=== PATIENT | female | born 1980 | race Caucasian/White ===

== ENCOUNTER → 2016-03-23 | Outpatient (CLI) | payer BC ==
--- NOTE | 2016-03-23 13:01 | US ---
EXAMINATION TYPE: US pelvic complete DATE OF EXAM: 03/23/2016 10:36 AM COMPARISON: NONE CLINICAL HISTORY: 35-year-old female R10.84 Abdominal pain,R10.2 Pelvic pain. Right lower quadrant pa in, history of ovarian cysts Date of LMP: 03/07/2016, TECHNIQUE: Multiple transabdominal sonographic images of the pelvis were obtained. FINDINGS: Uterus: Anteverted measuring 10.2 x 4.6 x 3.6 cm Endometrial Stripe: 9.5 mm. Right Ovary: 3.9 x 1.7 x 1.7 cm with a 1.7 cm dominant follicle or functional cyst. Left Ovary: 2.4 x 1.9 x 1.3 cm within normal limits. No evident adnexal abnormality or cul-de-sac free fluid. IMPRESSION: A 1.7 cm dominant follicle or functional cyst within the right ovary. Otherwise, no specific abnormal ity seen on transabdominal scanning.
--- NOTE | 2016-03-23 13:56 | US ---
EXAMINATION TYPE: US abdomen complete DATE OF EXAM: 03/23/2016 10:56 AM COMPARISON: NONE CLINICAL HISTORY: 35-year-old female R10.84 Abdominal pain,R10.2 Pelvic pain. RUQ pain. TECHNIQUE: Multiple sonographic images of the abdomen were obtained. FINDINGS: Liver Length: 15.1 cm Gallbladder Wall: 0.2 cm CBD: 0.3 cm Spleen: 11.0 cm Right Kidney: 9.7 x 4.9 x 5.1 cm Left Kidney: 9.2 x 4.6 x 4.2 cm Pancreas: wnl Liver: There is a small 8 mm hypoechoic area along the anterior left hepatic lobe with posterior thro ugh transmission. A complicated cyst or small hemangioma are both possible. Gallbladder: No abnormal gallbladder distention, wall thickening, pericholecystic fluid, or shadowin g calculi. Evidence for sonographic Banerjee's sign: neg CBD: wnl Spleen: wnl Right Kidney: No hydronephrosis. Left Kidney: No hydronephrosis. Upper IVC: Within normal limits. Abd Aorta: No aneurysm. IMPRESSION: 1. An 8 mm lesion along the anterior left hepatic lobe shows posterior through transmission and could represent a small complicated cyst or hemangioma. Consider a 6 month follow-up to reassess. 2. Otherwise, unremarkable sonographic examination of the abdomen.
== END | disposition home or self-care (01) ==
LOC: RADUSWWP 09:58
PROVIDERS: ATTEND Internal Medicine
DX: K76.89 Other specified diseases of liver (principal); R10.2 Pelvic and perineal pain
CPT/HCPCS: 76700; 76856

== ENCOUNTER 2016-07-19 10:22 | Day surgery (SDC) | payer BC ==
[2016-07-18 09:06] VITALS: BMI 25.7
[~2016-07-19 10:22] MED LIST: LIDOCAINE 1% 20 ML VIAL (10MG/ML) FOR IV START INTRADERMA PRN
[2016-07-19 10:59] VITALS: TEMP 97
--- NOTE | 2016-07-19 11:00 | P.GSHP ---
History of Present Illness H&P Date: 07/19/16 CHIEF COMPLAINT: GERD HISTORY OF PRESENT ILLNESS: The patient is a 35-year-old female who presents reports gastroesophageal reflux disease. Upper endoscopy was offered for further evaluation and management. PAST MEDICAL HISTORY: Please see list. PAST SURGICAL HISTORY: Please see list. MEDICATIONS: Please see list. ALLERGIES: Please see list. SOCIAL HISTORY: No illicit drug use FAMILY HISTORY: No reports of Crohn disease or ulcerative colitis. REVIEW OF ORGAN SYSTEMS: CONSTITUTIONAL: No reports of fevers or chills. GI: Denies any blood in stools or constipation. PHYSICAL EXAM: VITAL SIGNS: Stable GENERAL: Well-developed and pleasant in no acute distress. HEENT: No scleral icterus. Extraocular movements grossly intact. Moist buccal mucosa. NECK: Supple without lymphadenopathy. CHEST: Unlabored respirations. Equal bilateral excursions. CARDIOVASCULAR: Regular rate and rhythm. Distal 2+ pulses. ABDOMEN: Soft, nondistended. MUSCULOSKELETAL: No clubbing, cyanosis, or edema. ASSESSMENT: 1. Gastroesophageal reflux disease PLAN: 1. Recommend proceeding with an upper endoscopy Past Medical History Past Medical History: GERD/Reflux History of Any Multi-Drug Resistant Organisms: None Reported Past Surgical History: Section Past Anesthesia/Blood Transfusion Reactions: No Reported Reaction Past Psychological History: No Psychological Hx Reported Smoking Status: Never smoker Past Alcohol Use History: Occasional Past Drug Use History: None Reported - Past Family History Mother Family Medical History: No Reported History Medications and Allergies Home Medications Medication Instructions Recorded Confirmed Type Famotidine [Pepcid AC] 10 mg PO DAILY 07/18/16 07/18/16 History Allergies Allergy/AdvReac Type Severity Reaction Status Date / Time No Known Allergies Allergy Verified 07/18/16 08:55 Surgical - Exam Vital Signs Temp Pulse Resp BP Pulse Ox 97.0 F L 71 18 127/82 96 07/19/16 10:58 07/19/16 10:58 07/19/16 10:58 07/19/16 10:58 07/19/16 10:58
[2016-07-19] MEDS: LACTATED RINGERS 1,000 ML IV SCH ×2 (11:12→11:27)
[2016-07-19] MEDS ORDERED: PROPOFOL 10 MG/ML 20 ML VIAL IV ONE (11:31)
[2016-07-19] MEDS ORDERED: LIDOCAINE 1% INJ 10MG/ML (20 ML MDV) ONE (11:31)
[2016-07-19 11:55] VITALS: RESP 16
--- NOTE | 2016-07-19 11:59 | P.PCN ---
Date of Procedure: 07/19/16 Preoperative Diagnosis: Postoperative Diagnosis: Procedure(s) Performed: Implants: Indications for Procedure: Operative Findings: Description of Procedure: PREOPERATIVE DIAGNOSIS: Gastroesophageal reflux disease. Epigastric abdominal pain. POSTOPERATIVE DIAGNOSIS: Gastroesophageal reflux disease. Epigastric abdominal pain. Diaphragmatic hiatal hernia. Gastritis. OPERATION: Esophagogastroduodenoscopy with biopsies along antrum. SURGEON: Rose Caruso MD ANESTHESIA: MAC. INDICATIONS: The patient is a 35-year-old female who presents with a history of reflux disease. Benefits and risks of the procedure were described. Informed consent was obtained. DESCRIPTION: The patient was brought into the endoscopy suite and laid in the left lateral decubitus position. An Olympus gastroscope was passed along the posterior oropharynx down to the distal esophagus where the squamocolumnar junction was encountered at 35 cm from the incisors. The stomach was entered and minimal bile reflux was found. Additional findings are listed below. Biopsies with cold forceps were obtained of the antrum. The first through third portion of the duodenum was examined and unremarkable. Retroflexion of the scope confirmed Hill grade II lower esophageal valve. The squamocolumnar junction demostrated acute LA grade C erosive esophagitis. The stomach was desufflated. The patient tolerated the procedure well. FINDINGS: Squamocolumnar junction 33 cm from the incisors. Diaphragmatic hiatus at 35 cm from the incisors. Hiatal hernia, 2 cm, sliding type. Hill grade II lower esophageal valve. LA grade C erosive esophagitis. No active duodenitis. No gastric or duodenal ulcers. RECOMMENDATIONS: Further recommendations pending results of pathology report. Upper endoscopy as needed. Plan - Discharge Summary New Discharge Prescriptions: No Action Famotidine [Pepcid AC] 20 mg PO DAILY Discharge Medication List Famotidine [Pepcid AC] 20 mg PO DAILY 07/18/16 [History]
[2016-07-19 12:01] VITALS: BP 107/71; PULSE 76
== END 2016-07-19 12:24 | disposition home or self-care (01) ==
LOC: ORWHC2ENDO 10:22
PROVIDERS: ATTEND Surgery Plastic and Reconstructive Surgery
DX: K29.50 Unspecified chronic gastritis without bleeding (principal); K44.9 Diaphragmatic hernia without obstruction or gangrene; K21.0 Gastro-esophageal reflux disease with esophagitis; Z79.899 Other long term (current) drug therapy
CPT/HCPCS: 81025; 88305; 88342; 43239; J2001; J2704

== ENCOUNTER 2016-10-03 16:40 | Observation (INO) | payer BC ==
[2016-10-03 17:29] VITALS: BMI 26.8
[2016-10-03] MEDS ORDERED: ONDANSETRON 4 MG/2 ML VIAL IVP PRN (18:10)
[2016-10-03] MEDS ORDERED: NALOXONE 0.4 MG/ML 1 ML VIAL IV PRN (18:10)
[2016-10-03] MEDS ORDERED: LORazepam 2 MG/ML SYRINGE IV PRN (18:10)
[2016-10-03] MEDS ORDERED: HYDROmorphone 1 MG/ML 1 ML SYRINGE IV PRN (18:10)
[2016-10-03] MEDS ORDERED: RX INFO: IV CONTRAST WAS GIVEN 1 EACH MISC MISCELLANE PRN (18:14)
[2016-10-03 18:43] LABS: Basophils % (A) 1 %; CH 33.7; CHCM 35.5; Eosinophils # (A) 0.1 k/uL (0-0.7); Eosinophils % (A) 2 %; HCT 37.9 % (34.0-46.0); HDW 2.67; HGB 12.9 gm/dL (11.4-16.0); Luc # (Auto) 0.06; Luc % (Auto) 1; Lymphocytes # (A) 1.6 k/uL (1.0-4.8); Lymphocytes % (A) 27 %; MCH 32.6 pg (25.0-35.0); MCHC 34.2 g/dL (31.0-37.0); MCV 95.2 fL (80.0-100.0); Mean Platelet Volume 9.4; Monocytes # (A) 0.3 k/uL (0-1.0); Monocytes % (A) 5 %; Neutrophils # (A) 3.8 k/uL (1.3-7.7); Neutrophils % (A) 64 %; RBC 3.97 m/uL (3.80-5.40); WBC (Perox) 6.24
[2016-10-03 19:04] LABS: ALT 29 U/L (9-52); AST 19 U/L (14-36); Alkaline Phosphatase 63 U/L (38-126); Amylase 51 U/L (30-110); Anion Gap 12 mmol/L; Blood Urea Nitrogen 10 mg/dL (7-17); Calcium 9.9 mg/dL (8.4-10.2); Carbon Dioxide 25 mmol/L (22-30); Chloride 106 mmol/L (98-107); Glucose 96 mg/dL (74-99); Magnesium 1.9 mg/dL (1.6-2.3); Non-African American GFR(MDRD) >60 (>60 ml/min/1.73 sqM); Phosphorous 4.2 mg/dL (2.5-4.5); Potassium 4.5 mmol/L (3.5-5.1); Sodium 143 mmol/L (137-145); Total Bilirubin 0.2 mg/dL (0.2-1.3); Total Protein 7.1 g/dL (6.3-8.2)
--- NOTE | 2016-10-03 19:17 | US ---
EXAMINATION TYPE: US gallbladder DATE OF EXAM: 10/03/2016 COMPARISON: NONE CLINICAL HISTORY: cholecystitis. Pain LUQ to back x 14 years gallbladder contracted patient states sh e hasn't ate in 6 hours EXAM MEASUREMENTS: Liver Length: 15.5 cm Gallbladder Wall: 0.25 cm CBD: 0.37 cm Right Kidney: 10 x 3.9 x 3.8 cm Pancreas: wnl Liver: wnl Gallbladder: contracted CBD: wnl Right Kidney: No hydronephrosis or masses seen IMPRESSION: Contracted gallbladder. No gallstones or dilated ducts.
[2016-10-03 19:19] LABS: Appearance,Urine Cloudy (Clear); Bacteria,Urine Occasional /hpf; Bilirubin,Urine Negative (Negative); Glucose,Urine (UA) Negative (Negative); Ketones,Urine Negative (Negative); Leukocyte Esterase,Urine Moderate (Negative); Mucus,Urine Rare /hpf; Nitrite,Urine Negative (Negative); PH, Urine 6.5 (5.0-8.0); Particle Count 5533; Protein,Urine Negative (Negative); RBC,Urine <1 /hpf (0-5); Specific Gravity,Urine 1.014 (1.001-1.035); Squamous Epithelial Cell,Urine 5 /hpf (0-4); UA Billing (MACRO vs. MICRO) MICRO; Urobilinogen,Urine <2.0 mg/dL (<2.0); WBC,Urine 4 /hpf (0-5)
[2016-10-03] MEDS: SODIUM CHLORIDE 0.9% 1,000 ML IV SCH (19:19)
--- NOTE | 2016-10-03 20:32 | P.PN ---
Progress Note - Text Patient is having her studies done at present.
[2016-10-03] MEDS: IOHEXOL 350 MG/ML 25 ML BOTTLE (ORAL USE) PO PRN ×2 (21:29→22:33)
--- NOTE | 2016-10-03 21:34 | NM ---
EXAMINATION TYPE: NM hepatobiliary w EF DATE OF EXAM: 10/03/2016 COMPARISON: NONE HISTORY: TECHNIQUE: After the intravenous administration of 5.5 mCi Tc 99m Mebrofenin hepatobiliary scintigrap hy is performed. Immediate images post injection. FINDINGS: There is prompt uptake of the tracer by the liver that has normal size and contour. Liver shows no fo phong defect. There is tracer in the small bowel at 5 minutes and tracer in the gallbladder at 12 minut es which excludes obstruction of the cystic duct and common bile duct. Tracers mostly cleared from th e liver at one hour. The post ensure images show a gallbladder ejection fraction of 93% which is normal. IMPRESSION: Normal hepatobiliary scan.
--- NOTE | 2016-10-03 23:47 | CT ---
EXAM: CT Abdomen and Pelvis With Intravenous Contrast CLINICAL HISTORY: left abdominal pain, cholecystitis TECHNIQUE: Axial computed tomography images of the abdomen and pelvis with 100 mL Omnipaque 300. Intravenous contrast. CTDI is 23.71 mGy and DLP is 928 mGy-cm. This CT exam was performed using one or more of the following dose reduction techniques: automated exposure control, adjustment of the mA and/or kV according to patient size, and/or use of iterative reconstruction technique. Coronal and sagittal reconstructions are performed COMPARISON: No relevant prior studies available. FINDINGS: Lower thorax: No acute findings. ABDOMEN: Liver: Unremarkable. No mass. Gallbladder and bile ducts: Unremarkable. No calcified stones. No ductal dilation. Pancreas: Unremarkable. No mass. No ductal dilation. Spleen: Unremarkable. No splenomegaly. Adrenals: Unremarkable. No mass. Kidneys and ureters: Unremarkable. No solid mass. No hydronephrosis. Stomach and bowel: Moderate amount of stool in the colon. No obstruction. No mucosal thickening. Appendix: Questionably visualized on series 6 images 30-42, has normal caliber. PELVIS: Bladder: Unremarkable. No mass. Reproductive: Unremarkable as visualized. ABDOMEN and PELVIS: Intraperitoneal space: Unremarkable. No free air. No significant fluid collection. Bones/joints: Old left pars defect L5. No acute fracture. No dislocation. Soft tissues: Unremarkable. Vasculature: Unremarkable. No abdominal aortic aneurysm. Lymph nodes: Unremarkable. No enlarged lymph nodes. IMPRESSION: No acute findings
[2016-10-04] MEDS: SODIUM CHLORIDE 0.9% 1,000 ML IV SCH ×2 (04:25→13:00)
[2016-10-04 06:51] LABS: Basophils % (A) 1 %; CH 33.7; CHCM 35.6; Eosinophils # (A) 0.1 k/uL (0-0.7); Eosinophils % (A) 3 %; HCT 36.5 % (34.0-46.0); HDW 2.68; HGB 12.4 gm/dL (11.4-16.0); Luc # (Auto) 0.06; Luc % (Auto) 1; Lymphocytes # (A) 1.5 k/uL (1.0-4.8); Lymphocytes % (A) 31 %; MCH 32.3 pg (25.0-35.0); MCV 94.9 fL (80.0-100.0); Mean Platelet Volume 8.9; Monocytes # (A) 0.3 k/uL (0-1.0); Monocytes % (A) 6 %; Neutrophils # (A) 2.9 k/uL (1.3-7.7); Neutrophils % (A) 59 %; RBC 3.84 m/uL (3.80-5.40); RDW 12.7 % (11.5-15.5); WBC 4.9 k/uL (3.8-10.6); WBC (Perox) 4.98
[2016-10-04 07:01] LABS: Anion Gap 6 mmol/L; Blood Urea Nitrogen 6 mg/dL (7-17); Calcium 8.6 mg/dL (8.4-10.2); Carbon Dioxide 23 mmol/L (22-30); Chloride 110 mmol/L (98-107); Glucose 91 mg/dL (74-99); Magnesium 1.8 mg/dL (1.6-2.3); Non-African American GFR(MDRD) >60 (>60 ml/min/1.73 sqM); Phosphorous 3.7 mg/dL (2.5-4.5); Potassium 4.1 mmol/L (3.5-5.1); Sodium 139 mmol/L (137-145)
[2016-10-04] MEDS: HEPARIN SODIUM,PORCINE 5,000 UNIT/ML 1 ML VIAL SQ SCH ×3 (08:07→14:17)
[2016-10-04] MEDS ORDERED: PANTOPRAZOLE 40 MG/10 ML VIAL IV SCH (09:00)
[2016-10-04] MEDS ORDERED: HYDROcodone/APAP 5-325MG 1 EACH TAB PO PRN (10:34)
--- NOTE | 2016-10-04 11:17 | P.GSHP ---
<Patti Pierre - Last Filed: 10/04/16 10:55> History of Present Illness H&P Date: 10/04/16 35-year-old female was admitted with a chief complaint of developing left upper shoulder pain radiating to the left scapula worse when abducting both arms causes increased pain. Patient states that she has been experiencing this type pain on and off for the last 11 years. Patient states over the last couple weeks she had been lifting boxes noted that the activity seem to cause the pain to be more symptomatic. Patient points to the left scapula area as to the reference point where the pain seems to be more intense. Questioning patient patient's denying any abdominal pain denies any nausea vomiting denies any change in bowel habits denies any unintentional weight loss. Patient did have a HIDA scan this admission it was a normal study it showed the gallbladder EF of 93% which is normal additionally patient did have a ultrasound of the gallbladder no gallstones no dilated ducts noted no hydronephrosis or mass seen in the right kidney, bile duct within normal limits patient did have a CAT scan of the abdomen pelvis with IV contrast that was done on the in summary it was an unremarkable study there were no acute findings patient does state that she has been worked up for left upper quadrant pain in June 2016 did undergo an EGD with biopsy. She stated she was told had a hiatal hernia. Patient stated that she had been experiencing epigastric abdominal discomfort and that was the reason for the EGD. - Review of Systems Comment: Essentially unremarkable except as mentioned in the present illness Past Medical History Past Medical History: GERD/Reflux Additional Past Medical History / Comment(s): cycstic ovaries. History of Any Multi-Drug Resistant Organisms: None Reported Past Surgical History: Section Past Anesthesia/Blood Transfusion Reactions: No Reported Reaction Past Psychological History: Anxiety Smoking Status: Never smoker Past Alcohol Use History: Occasional Past Drug Use History: None Reported - Past Family History Mother Family Medical History: No Reported History Father Family Medical History: GERD/Reflux Additional Family Medical History / Comment(s): ulcers Medications and Allergies Home Medications Medication Instructions Recorded Confirmed Type ALPRAZolam [Xanax] 0.25 mg PO DAILY PRN 10/03/16 10/03/16 History Calcium Carbonate [Tums] 1,000 mg PO TID PRN 10/03/16 10/03/16 History Ibuprofen [Motrin] 800 mg PO BID PRN 10/03/16 10/03/16 History Metoclopramide [Reglan] 10 mg PO ACHS #30 tab 10/04/16 Rx Pantoprazole Sodium [Protonix] 40 mg PO 14 #1 tablet. 10/04/16 Rx Allergies Allergy/AdvReac Type Severity Reaction Status Date / Time No Known Allergies Allergy Verified 10/03/16 18:00 Surgical - Exam Vital Signs Temp Pulse Resp BP Pulse Ox 98.2 F 72 16 120/70 97 10/03/16 17:40 10/03/16 17:40 10/03/16 17:40 10/03/16 17:40 10/03/16 17:40 GENERAL APPEARANCE: 35-year-old female patient is alert, oriented, in no acute distress. Resting in bed VITAL SIGNS: Reviewed HEENT: Head is normocephalic and atraumatic. Pupils are equal and reactive. The nares are patent. Oropharynx is clear without lesions. NECK: Supple without lymphadenopathy. Traches midline. HEART: S1, S2. Regular rate and rhythm. Denying any chest pain no heart palpitations no murmur noted LUNGS: No crackles or wheezes are heard. Adequate air entry bilaterally ABDOMEN: Soft, nontender, nondistended with good bowel sounds. No peritoneal signs. No palpable organomegaly or masses. EXTREMITIES: Normal skin color and turgor. No cyanosis, rash, ulceration, clubbing or edema. Radial pedal pulses are 2/4 bilaterally. Increased pain to the left scapula when abducting shoulders NEUROLOGICAL: No focal deficits. Strength and sensation are grossly intact. Results - Labs 10/04/16 06:34 10/04/16 06:34 Abnormal Lab Results - Last 24 Hours (Table) 10/03/16 10/04/16 Range/Units 19:00 06:34 Chloride 110 H (98-107) mmol/L BUN 6 L (7-17) mg/dL Urine Appearance Cloudy H (Clear) Ur Leukocyte Esterase Moderate H (Negative) Ur Squamous Epith Cells 5 H (0-4) /hpf Urine Bacteria Occasional H (None) /hpf Urine Mucus Rare H (None) /hpf Diabetes panel 10/03/16 10/04/16 Range/Units 18:29 06:34 Sodium 143 139 (137-145) mmol/L Potassium 4.5 4.1 (3.5-5.1) mmol/L Chloride 106 110 H (98-107) mmol/L Carbon Dioxide 25 23 (22-30) mmol/L BUN 10 6 L (7-17) mg/dL Creatinine 0.80 0.72 (0.52-1.04) mg/dL Glucose 96 91 (74-99) mg/dL Calcium 9.9 8.6 (8.4-10.2) mg/dL AST 19 (14-36) U/L ALT 29 (9-52) U/L Alkaline Phosphatase 63 (38-126) U/L Total Protein 7.1 (6.3-8.2) g/dL Albumin 4.5 (3.5-5.0) g/dL Calcium panel 10/03/16 10/04/16 Range/Units 18:29 06:34 Calcium 9.9 8.6 (8.4-10.2) mg/dL Phosphorus 4.2 3.7 (2.5-4.5) mg/dL Albumin 4.5 (3.5-5.0) g/dL Pituitary panel 10/03/16 10/04/16 Range/Units 18:29 06:34 Sodium 143 139 (137-145) mmol/L Potassium 4.5 4.1 (3.5-5.1) mmol/L Chloride 106 110 H (98-107) mmol/L Carbon Dioxide 25 23 (22-30) mmol/L BUN 10 6 L (7-17) mg/dL Creatinine 0.80 0.72 (0.52-1.04) mg/dL Glucose 96 91 (74-99) mg/dL Calcium 9.9 8.6 (8.4-10.2) mg/dL Adrenal panel 10/03/16 10/04/16 Range/Units 18:29 06:34 Sodium 143 139 (137-145) mmol/L Potassium 4.5 4.1 (3.5-5.1) mmol/L Chloride 106 110 H (98-107) mmol/L Carbon Dioxide 25 23 (22-30) mmol/L BUN 10 6 L (7-17) mg/dL Creatinine 0.80 0.72 (0.52-1.04) mg/dL Glucose 96 91 (74-99) mg/dL Calcium 9.9 8.6 (8.4-10.2) mg/dL Total Bilirubin 0.2 (0.2-1.3) mg/dL AST 19 (14-36) U/L ALT 29 (9-52) U/L Alkaline Phosphatase 63 (38-126) U/L Total Protein 7.1 (6.3-8.2) g/dL Albumin 4.5 (3.5-5.0) g/dL Assessment and Plan Plan: Impression 1 Present on admission left shoulder pain unclear etiology Surgical history of diaphragmatic hiatal hernia per EGD done in June 2016 History of esophageal reflux disease History of epigastric abdominal discomfort chronic Anxiety disorder nonspecified Plan Resume home meds as appropriate DVT and GI prophylaxis Clear liquid diet Consult orthopedic for the left shoulder scapulary pain Further recommendations pending The above impression and plan of care have been discussed and directed by signing physician. Patti Pierre nurse practitioner acting as scribe for signing physician. <Rose Caruso N - Last Filed: 10/26/16 16:52> Surgical - Exam Vital Signs Temp Pulse Resp BP Pulse Ox 98.2 F 72 16 120/70 97 10/03/16 17:40 10/03/16 17:40 10/03/16 17:40 10/03/16 17:40 10/03/16 17:40 Results - Labs 10/04/16 06:34 10/04/16 06:34
--- NOTE | 2016-10-04 12:33 | XR ---
EXAMINATION TYPE: XR cervical spine comp DATE OF EXAM: 10/04/2016 COMPARISON: NONE HISTORY: 35 year-old female left upper extremity radiculopathy TECHNIQUE: 5 views FINDINGS: Reversal of the normal cervical lordosis. No predental space widening or prevertebral soft tissue swe lling. Alignment is maintained. No significant degenerative change seen. No significant bony spondylo tic neuroforaminal narrowing. IMPRESSION: Reversal of the normal cervical lordosis could be positional or due to muscle spasm. No significant b emerald spondylotic neuroforaminal narrowing on either side.
[2016-10-04 18:33] VITALS: RESP 20
--- NOTE | 2016-10-04 20:43 | P.PN ---
Progress Note - Text Patient seen and evaluated. She reports still persistent left sided chest pain. She had improved symptoms with protonix. She reports left chest and rib pain. On exam she has pin-point tenderness along the 5 ICS mid-clavicular radiating into her left arm pit and to the back, left lateral thoracic vertebrae. Her symptoms are worse with elevating her left arm. No worsening symptoms from her HIDA scan. Recommend chest films including oblique views. Possible thoracic inlet syndrome to be considered as she reports the pain causes dullness and numbness to her left arm beyond the elbow. Orthopedic referral discussed but patient had past evaluation with ortho without any success. She had tried chiropractors without success. Potential referral to pain clinic also discussed. As overall studies are inconclusive for gallbladder etiology and she has improvement with Protonix, recommend discharge home with Protonix and Reglan with outpatient follow-up.
[2016-10-04 20:53] VITALS: BP 104/67; PULSE 80; TEMP 97.4
--- NOTE | 2016-10-04 21:08 | XR ---
EXAMINATION TYPE: XR chest 2V DATE OF EXAM: 10/04/2016 COMPARISON: NONE HISTORY: Rib pain TECHNIQUE: Frontal and lateral views of the chest are obtained. FINDINGS: Heart and mediastinum are normal. Lungs are clear. Diaphragm is normal. Bony thorax is int act. IMPRESSION: Normal chest
--- NOTE | 2016-10-04 21:09 | XR ---
EXAMINATION TYPE: XR ribs LT DATE OF EXAM: 10/04/2016 COMPARISON: NONE HISTORY: Rib pain TECHNIQUE: 4 views FINDINGS: I see no pleural effusion or pneumothorax. Left lung is clear of infiltrate. There is no si gn of a rib fracture. IMPRESSION: Negative left rib exam.
== END 2016-10-04 21:00 | disposition home or self-care (01) ==
LOC: 6PED 16:43 → INTOOBSV 16:43
PROVIDERS: ADMIT Surgery Plastic and Reconstructive Surgery; ATTEND Surgery Plastic and Reconstructive Surgery
DX: M25.512 Pain in left shoulder (principal); R07.9 Chest pain, unspecified; R07.81 Pleurodynia; R20.0 Anesthesia of skin; K44.9 Diaphragmatic hernia without obstruction or gangrene; F41.9 Anxiety disorder, unspecified; K21.9 Gastro-esophageal reflux disease without esophagitis; R10.13 Epigastric pain; G89.29 Other chronic pain
CPT/HCPCS: 93005; 80053; 80048; 82150; 83735 ×2; 84100 ×2; 84484 ×2; 85025 ×2; 81001; 81025; 71020; 72050; 71100; 76705; 74177; 78226; G0378 ×2; G0379; A9537; Q9967; C9113

== ENCOUNTER → 2017-03-01 | Outpatient (CLI) | payer BC ==
--- NOTE | 2017-03-01 10:24 | XR ---
EXAMINATION TYPE: XR lumbosacral spine min 4V DATE OF EXAM: 03/01/2017 CLINICAL HISTORY: Increasing low back pain for 2 to 3 months. TECHNIQUE: Frontal, oblique, and lateral images of the lumbar spine are obtained. COMPARISON: CT abdomen pelvis October 03, 2016. FINDINGS: There are 5 lumbar type vertebral bodies redemonstrated. The lumbar spine shows satisfact ory alignment without evidence of acute fracture or dislocation. Vertebral body heights and disk spac e heights are within normal limits. There is spina bifida defects L5 level redemonstrated. There is left-sided pars defects L5 level confirmed on prior CT. No significant spondylolisthesis. The obliqu e images appear within normal limits. The overlying soft tissue appears unremarkable. IMPRESSION: Left-sided pars defects L5 level without significant spondylolisthesis. Spina bifida defe cts L5 level.
== END | disposition home or self-care (01) ==
LOC: RADXRYALE 10:02
PROVIDERS: ATTEND Internal Medicine
DX: Q05.7 Lumbar spina bifida without hydrocephalus (principal); M54.31 Sciatica, right side
CPT/HCPCS: 72110

== ENCOUNTER → 2018-09-23 | Outpatient (CLI) | payer BC ==
--- NOTE | 2018-09-23 13:41 | XR ---
EXAMINATION TYPE: XR ribs LT w pa chest xray DATE OF EXAM: 09/23/2018 CLINICAL HISTORY: Left rib pain for 3 weeks TECHNIQUE: Single frontal view of the chest is obtained. COMPARISON: 10/04/2016 chest x-ray FINDINGS: There is no focal air space opacity, pleural effusion, or pneumothorax seen. The cardiac silhouette size is within normal limits. No acute displaced rib fracture is seen. No chronic healed r ib fracture deformity, particularly on the left. No suspicious osseous lesion is identified. IMPRESSION: No acute cardiopulmonary process nor acute displaced rib fracture with attention to the left ribs.
== END | disposition home or self-care (01) ==
LOC: RADXRYALE 13:26
PROVIDERS: ATTEND Internal Medicine
DX: R07.81 Pleurodynia (principal)

== ENCOUNTER → 2021-08-25 | Outpatient (CLI) | payer BC ==
--- NOTE | 2021-08-25 10:32 | XR ---
EXAMINATION TYPE: XR lumbosacral spine min 4V DATE OF EXAM: 08/25/2021 CLINICAL HISTORY: pain COMPARISON: NONE TECHNIQUE: Frontal, lateral, and oblique images of the lumbar spine are obtained. FINDINGS: There are 5 lumbar type vertebral bodies identified. The lumbar spine shows satisfactory alignment without evidence of acute fracture or dislocation. Vertebral body heights are within normal limits. Moderate degenerative narrowing L4-5. Mild ventral spondylosis. Incidental posterior fusion defect L5. The overlying soft tissue appears unremarkable. IMPRESSION: No acute fracture or dislocation is seen in the lumbar spine.ICD 10 NO FRACTURE, INITIAL EVALUATION
== END | disposition home or self-care (01) ==
LOC: RADXRYALE 09:49
PROVIDERS: ATTEND Physician Assistant
DX: M54.50 Low back pain, unspecified (principal)
CPT/HCPCS: 72110

== ENCOUNTER → 2021-09-07 | Outpatient (CLI) | payer BC ==
--- NOTE | 2021-09-08 07:30 | US ---
EXAMINATION TYPE: US transvaginal DATE OF EXAM: 09/07/2021 COMPARISON: NONE CLINICAL HISTORY: 40-year-old female R10.30 lower abd pain. TECHNIQUE: Transvaginal (TV). Date of LMP: 09-01-21 FINDINGS: EXAM MEASUREMENTS: Uterus: 9.9 x 4.2 x 4.9 cm Endometrial Stripe: 0.3 cm Right Ovary: 3.3 x 2.3 x 1.5 cm Left Ovary: 1.9 x 1.6 x 1.6 cm 1. Uterus: Heterogeneous myometrium. Some possible vague cystic change suggested in the anterior ryann metrium. There is a somewhat rounded heterogeneous area measuring 1.8 x 1.8 x 1.6 cm along the anteri or uterine body, primarily intramural with abutment along the endometrial stripe, probable fibroid. 2. Endometrium: wnl 3. Right Ovary: wnl 4. Left Ovary: wnl 5. Bilateral Adnexa: wnl 6. Posterior cul-de-sac: wnl IMPRESSION: 1. Heterogeneous myometrium may reflect diffuse small fibroid change or adenomyosis. 2. There may be a focal 1.8 cm intramural fibroid anterior uterine body with small submucosal compone nt.
== END | disposition home or self-care (01) ==
LOC: RADUSWWP 16:29
PROVIDERS: ATTEND Family Medicine
DX: R10.30 Lower abdominal pain, unspecified (principal)
CPT/HCPCS: 76830

== ENCOUNTER → 2022-09-06 | Outpatient (CLI) | payer BC ==
--- NOTE | 2022-09-06 16:58 | CT ---
EXAMINATION TYPE: CT abdomen pelvis w con DATE OF EXAM: 09/06/2022 COMPARISON: 10/03/2016 INDICATION: RLQ pain DLP: 736.5 mGycm, Automated exposure control for dose reduction was used. CONTRAST: 100 mL of Isovue 300. Study performed with Oral Contrast TECHNIQUE: Axial images were obtained from above the diaphragm to the pubic rami in the axial plane a t 5 mm thick sections. Reconstructed images are reviewed on the computer in the coronal plane. FINDINGS: Limited CT sections are obtained the lung bases. Lung crook are clear.. CT ABDOMEN: Liver: There is a 2.3 cm cyst on the anterior liver. Liver otherwise appears unremarkable Spleen: Normal Pancreas: Normal Adrenal glands: The adrenal glands are normal. Gallbladder: Normal Kidneys: No masses are evident. No hydronephrosis is present. No cysts are present. Delayed images were obtained through the kidneys, which remain unremarkable. Aorta: Normal Inferior vena cava: Normal. CT PELVIS: Loops of bowel within the abdomen and pelvis are normal. There are loops of bowel which are incom pletely distended or lack oral contrast limiting their evaluation. Appendix: Not identified. No dilated tubular structure or inflammatory changes evident. There are sca ttered small lymph nodes in the right lower quadrant. Consider mesenteric adenitis. Urinary bladder: Normal. Genitourinary structures: Uterus appears normal. There is a 2.4 cm right ovarian cyst present. A 1.9 cm cyst on the left ovary. Osseous structures: No suspicious lytic or sclerotic lesions. Degenerative disc changes are present L 4-5. IMPRESSIONS: 1. Appendix is not identified. Clinical management of any suspected appendicitis will be required. S econdary signs to suggest acute appendicitis however not identified. 2. There are scattered small lymph nodes in the right lower quadrant. Consider mesenteric adenitis wi thin the differential. 3. Bilateral ovarian cysts. 4. Hepatic cyst
== END | disposition home or self-care (01) ==
LOC: RADCTMAIN 14:22
PROVIDERS: ATTEND Family Medicine
DX: N83.201 Unspecified ovarian cyst, right side (principal); N83.202 Unspecified ovarian cyst, left side; K76.89 Other specified diseases of liver; R10.31 Right lower quadrant pain; R10.30 Lower abdominal pain, unspecified
CPT/HCPCS: 74177; Q9967